=== PATIENT | male | born 1995 | race Caucasian/White ===

== ENCOUNTER 2016-12-25 12:20 | Emergency (ER) | payer OTHER ==
[~2016-12-25] VITALS: Ht 177.8 cm; Wt 90.9 kg
[2016-12-25] MEDS ORDERED: methylPREDNISolone INJ 125 MG/2 ML VIAL (J2930) IM ONE (13:15)
[2016-12-25] MEDS ORDERED: KETOROLAC 60 MG/2 ML VIAL (J1885) IM ONE (13:15)
[2016-12-25] MEDS ORDERED: tiZANidine 4 MG TAB PO ONE (13:15)
[2016-12-25] MEDS ORDERED: NAPR500T PO (14:20)
[2016-12-25] MEDS ORDERED: PRED20TA PO (14:20)
[2016-12-25 14:27] VITALS: BP 132/74
--- NOTE | 2016-12-25 16:29 | REP ---
Lumbar spine series: Seven views. History: Low back pain. Right-sided sciatica. Numbness. Findings: Lumbar spine lateral views done in flexion and extension show no subluxation or instability. Lumbar vertebral body heights are preserved. Alignment is normal. Disc spaces are maintained. There is a minimal dextroconvex curve on the AP radiograph. Pedicles and posterior elements are intact. There is no evidence of spondylolysis or spondylolisthesis. Sacrum and SI joints are intact. Psoas margins are symmetric. Impression: Mild dextroconvex curve. Otherwise negative lumbar spine radiographs. Signed by Gama Lynn MD 12/25/2016 05:28 P
== END 2016-12-25 14:31 | disposition home or self-care (01) ==
LOC: M ED 12:20
DX: M54.41 Lumbago with sciatica, right side (principal); F17.210 Nicotine dependence, cigarettes, uncomplicated
CPT/HCPCS: 72114; 96372; 99283; J1885; J2930

== ENCOUNTER 2017-03-26 07:01 | Emergency (ER) | payer OTHER ==
[2017-03-26] MEDS: ONDANSETRON 4 MG ORAL DISINTEGRATING TAB (S0181) PO (07:31)
== END 2017-03-26 07:54 | disposition home or self-care (01) ==
LOC: M ED 07:01
DX: R42 Dizziness and giddiness (principal); R11.0 Nausea; R00.2 Palpitations; M54.30 Sciatica, unspecified side; F17.210 Nicotine dependence, cigarettes, uncomplicated
CPT/HCPCS: 93005

== ENCOUNTER 2018-07-29 14:02 | Emergency (ER) | payer OTHER ==
[~2018-07-29] VITALS: Ht 182.9 cm; Wt 100.8 kg
[~2018-07-29 14:02] MED LIST: NAPR-837 PO; PRED20TA PO; ZOFR4TAB14 PO
[2018-07-29] MEDS ORDERED: KETOROLAC 60 MG/2 ML VIAL (J1885) IM ONE (14:30)
[2018-07-29] MEDS ORDERED: MOBI4TAB PO (15:00)
[2018-07-29] MEDS ORDERED: CYCL10TA PO (15:00)
[2018-07-29] MEDS ORDERED: PRED20TA PO (15:00)
[2018-07-29 15:06] VITALS: BP 117/61
--- NOTE | 2018-07-29 15:11 | REP ---
LUMBAR SPINE, FIVE VIEWS: HISTORY: Back pain. COMPARISON: 12/25/2016. There is no acute fracture. The intervertebral discs are normal in height. The facet joints are normal in appearance. There are 4 mm of retrolisthesis of L5 on S1. IMPRESSION: There is no acute fracture. Electronically Signed by David Soni MD 07/29/2018 03:19 P
== END 2018-07-29 15:16 | disposition home or self-care (01) ==
LOC: M ED 14:02
DX: M54.5 Low back pain (principal); F17.210 Nicotine dependence, cigarettes, uncomplicated
CPT/HCPCS: 72110; 96372; 99284; J1885